=== PATIENT | female | born 1945 | race Caucasian/White ===

== ENCOUNTER 2016-05-13 11:23 | Emergency (ER) | payer MEDICARE ==
[2016-05-13] MEDS ORDERED: Nitrostat 0.4 MG (ED) SL ONE ×2 (11:43→16:02)
[2016-05-13] MEDS ORDERED: BABY ASPIRIN 81 MG CHEW PO ONE (11:43)
--- NOTE | 2016-05-13 11:51 | ERPHSYRPT ---
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 vomiting x1. diaphoresis at home. on arrival, c/o heaviness to whole chest. no diaphoresis at present. denies nausea. 2 days ago--increased stress. has not taken meds in days Physician History: C/O heart pounding/chest discomfort init. 4/5 out 10 around 1-2 hrs [employer] along with SOB and bilat arms burning similliar to previous episode involving cardiac problems. Did not take any meds at home. Recently 2 days ago. States had nausea and diarrhea last night. Denies any recent cough, fever , chills, weakness or dizziness. Timing/Duration: hour(s) (2) Activities at Onset: other (sitting when occurred) Quality: dullness Location: substernal Chest Pain Radiation: no radiation Severity of Pain-Max: moderate Severity of Pain-Current: none (0/10) Modifying Factors: Improves With: nothing Associated Symptoms: palpitations, shortness of breath, fatigue, weakness, No nausea, No vomiting, No diaphoresis Nitro Today/Relief: 0.4 mg x 1 Aspirin Treatment Today: 81 mg x 4 Hx Tetanus, Diphtheria Vaccination/Date Given: Yes Hx Influenza Vaccination/Date Given: No Hx Pneumococcal Vaccination/Date Given: No Immunizations Up to Date: Yes - Past Medical History Pertinent Past Medical History: Yes Cardiac History: Coronary Artery Disease (CABG X 4 3-4 yrs ago), Hypertension Respiratory History: No Pertinent History Endocrine Medical History: No Pertinent History Musculoskeletal History: No Pertinent History Psycho-Social History: No Pertinent History - Past Surgical History Past Surgical History: Yes Cardiac: CABG (X 4) Respiratory: No Pertinent History Gastrointestinal: No Pertinent History - Social History Smoking Status: Current every day smoker (1/2 ppd) How long have you smoked: 1/2 Exposure to second hand smoke: No Patient Lives Alone: No - Nursing Vital Signs Temperature: 98.7 F Temperature Source: Oral Pulse Rate: 110 Respiratory Rate: 18 Blood Pressure: 147/76 Pain Intensity: 5 - Physical Exam General Appearance: no apparent distress, alert Eye Exam: PERRL/EOMI, eyes nml inspection Ears, Nose, Throat Exam: normal ENT inspection, moist mucous membranes Neck Exam: normal inspection, non-tender, supple, full range of motion Respiratory Exam: normal breath sounds, lungs clear, No respiratory distress Cardiovascular Exam: regular rate/rhythm, normal heart sounds Gastrointestinal/Abdomen Exam: soft, No tenderness, No mass Back Exam: normal inspection, No CVA tenderness, No vertebral tenderness Extremity Exam: normal inspection, normal range of motion Neurologic Exam: alert, oriented x 3, cooperative, normal mood/affect, sensation nml, No motor deficits Skin Exam: normal color, warm, dry SpO2: 97 Oxygen Delivery: Room Air - Course Nursing assessment & vital signs reviewed: Yes EKG Interpreted by Me: RATE ([id number]), Sinus Rhythm, Left Hernshaw Deviation, Left Bundle Branch Block, Non-specific ST Changes - Radiology Exams Chest X-ray Interpretation: Interpreted by me, No Pneumonia, No Infiltrates, Other (? cardiomegaly) Ordered Tests: Active Orders 24 hr Category Date Time Status Patient Financial Coordinator STAT Care 05/13/16 11:55 Active EKG-ER Only STAT Care 05/13/16 11:37 Active IV Insertion STAT Care 05/13/16 11:36 Active Pulse Oximetry (ED) STAT Care 05/13/16 11:59 Active CHEST 1 VIEW (PORTABLE) Stat Exams 05/13/16 11:56 Taken BMP Stat Lab 05/13/16 11:30 Completed CBC W DIFF Stat Lab 05/13/16 11:30 Completed CK-Creatinine Phosphokinase Stat Lab 05/13/16 11:30 Completed TROPONIN Q3H Lab 05/13/16 11:30 Completed TROPONIN Q3H Lab 05/13/16 14:17 Completed TROPONIN Q3H Lab 05/13/16 18:00 Ordered TROPONIN Q3H Lab 05/13/16 21:00 Ordered TROPONIN Q3H Lab 05/14/16 00:00 Ordered Medication Summary Discontinued Medications Generic Name Dose Route Start Last Admin Trade Name Freq PRN Reason Stop Dose Admin Aspirin 324 mg 05/13/16 11:43 05/13/16 11:40 Baby Aspirin 81 Mg Chew PO 05/13/16 11:44 324 mg STAT ONE Administration Nitroglycerin 0.4 mg 05/13/16 11:43 05/13/16 11:40 Nitrostat 0.4 Mg (Ed) SL 05/13/16 11:44 0.4 mg STAT ONE Administration Lab/Rad Data: Laboratory Result Diagrams 05/13/16 11:30 05/13/16 11:30 Laboratory Results 05/13/16 05/13/16 05/13/16 Range/Units 14:17 11:30 11:30 WBC (4.0-10.5) K/mm3 RBC (4.1-5.4) M/mm3 Hgb (12.0-16.0) gm/dl Hct (35-47) % MCV (78-100) fl MCH (26-32) pg MCHC (32-36) g/dl RDW (11.5-14.0) % Plt Count (150-450) K/mm3 MPV (6-9.5) fl Gran % (36.0-66.0) % Lymphocytes % (24.0-44.0) % Monocytes % (0.0-12.0) % Eosinophils % (0.00-5.0) % Basophils % (0.0-0.4) % Basophils # (0-0.4) Sodium 142 (136-145) mEq/L Potassium 3.8 (3.5-5.1) mEq/L Chloride 104 (98-107) mEq/L Carbon Dioxide 28.2 (21-32) mEq/L Anion Gap 14.0 (5-15) MEQ/L BUN 17 (9-20) mg/dL Creatinine 0.70 (0.55-1.30) mg/dl Estimated GFR > 60 ML/MIN Glucose 95 (70-110) MG/DL Calcium 8.9 (8.5-10.1) mg/dL Creatine Kinase 48 (26-192) U/L Troponin I < 0.017 < 0.017 (0.000-0.056) ng/ml 05/13/16 Range/Units 11:30 WBC 4.7 (4.0-10.5) K/mm3 RBC 4.58 (4.1-5.4) M/mm3 Hgb 14.1 (12.0-16.0) gm/dl Hct 43.0 (35-47) % MCV 93.9 (78-100) fl MCH 30.8 (26-32) pg MCHC 32.8 (32-36) g/dl RDW 12.9 (11.5-14.0) % Plt Count 123 L (150-450) K/mm3 MPV 12.6 H (6-9.5) fl Gran % 71.9 H (36.0-66.0) % Lymphocytes % 15.5 L (24.0-44.0) % Monocytes % 7.7 (0.0-12.0) % Eosinophils % 4.7 (0.00-5.0) % Basophils % 0.2 (0.0-0.4) % Basophils # 0.01 (0-0.4) Sodium (136-145) mEq/L Potassium (3.5-5.1) mEq/L Chloride (98-107) mEq/L Carbon Dioxide (21-32) mEq/L Anion Gap (5-15) MEQ/L BUN (9-20) mg/dL Creatinine (0.55-1.30) mg/dl Estimated GFR ML/MIN Glucose (70-110) MG/DL Calcium (8.5-10.1) mg/dL Creatine Kinase (26-192) U/L Troponin I (0.000-0.056) ng/ml - Progress Progress: improved Air Movement: good Progress Note: 05/13/16 12:49 patient given aspirin and nitroglycerin, which decreased her chest discomfort from 4 out of 10 to 0 out of 10. Patient resting comfortably and remained hemodynamically stable 05/13/16 13:21 Dr. Bey, her cardiologists, was notified and informed about patient. EKG essentially unchanged with and recent increased stress from husbands , along with a normal troponin. Dr. Bey is okay with patient going home and as an outpatient if serial troponins are normal. 05/13/16 14:54 repeat troponin remains negative. Patient feels much better and wants to go home. Blood Culture(s) Obtained: No Discussed with DrPetty: Other (Dr. Bey) Will see patient in: office Counseled pt/family regarding: lab results, diagnosis, rad results - Departure Time of Disposition: 14:55 Departure Disposition: Home Clinical Impression: Chest pain Condition: Stable Critical Care Time: No Referrals: RL BEY [Primary Care Provider] - Additional Instructions: return for worse chest pain, short of breath, dizziness, weakness, palpitations or any problems. Patient is to call Dr. Bey for further evaluation as an outpatient.
[2016-05-13 12:04] LABS: BASOPHIL % 0.2 % (0.0-0.4); Eosinophil % 4.7 % (0.00-5.0); Granulocytes % 71.9 % (36.0-66.0); Lymphocytes % 15.5 % (24.0-44.0); Mean Cell Volume 93.9 fl (78-100); Mean Corpuscular Hemoglobin 30.8 pg (26-32); Mean Platelet Volume 12.6 fl (6-9.5); Monocytes % 7.7 % (0.0-12.0); Platelet Count 123 K/mm3 (150-450); Red Blood Count 4.58 M/mm3 (4.1-5.4); Red Cell Distribution Width 12.9 % (11.5-14.0); White Blood Count 4.7 K/mm3 (4.0-10.5)
[2016-05-13 12:23] LABS: BLOOD UREA NITROGEN 17 mg/dL (9-20); CHLORIDE 104 mEq/L (98-107); Carbon Dioxide 28.2 mEq/L (21-32); Glucose 95 MG/DL (70-110); Potassium 3.8 mEq/L (3.5-5.1); SODIUM 142 mEq/L (136-145)
[2016-05-13 14:58] VITALS: BP 147/76; PULSE 110; O2SAT 97
[2016-05-13] MEDS ORDERED: BABY ASPIRIN 81 MG CHEW ONE (16:02)
--- NOTE | 2016-05-13 18:18 | XRAY ---
Indication: Chest pain. Comparison: None Portable chest is clear. Heart is not enlarged for AP portable technique and demonstrates previous CABG surgery. Bony thorax intact. Impression: Nonacute chest.
== END 2016-05-13 15:05 | disposition home or self-care (01) ==
LOC: ED 11:23
DX: R07.89 Other chest pain (principal); R11.2 Nausea with vomiting, unspecified; Z95.1 Presence of aortocoronary bypass graft; I10 Essential (primary) hypertension; F17.200 Nicotine dependence, unspecified, uncomplicated; R06.02 Shortness of breath
CPT/HCPCS: 36000; 36415; 71010; 80048; 82550; 84484; 85025; 93005; 93041; 99284